=== PATIENT | male | born 1965 | race Hispanic/Latino ===

== ENCOUNTER 2017-05-13 15:01 | Emergency (ER) | payer BC ==
[2017-05-13 15:07] VITALS: BP 158/93; PULSE 90; RESP 16; TEMP 98.4; O2SAT 98
--- NOTE | 2017-05-13 15:48 | ED PDOC ---
HPI: Abdomen Chief Complaint (Provider): Abdominal bloating History Per: Patient History/Exam Limitations: no limitations Onset/Duration Of Symptoms: Hrs Outside of [place] travel?: No Current Symptoms Are (Timing): Still Present Location Of Pain/Discomfort: RLQ Quality Of Discomfort: Gas Associated Symptoms: Nausea, Loss Of Appetite. denies: Fever, Chills, Vomiting , Diarrhea, Back Pain, Chest Pain, Constipation, Urinary Symptoms Exacerbating Factors: None Alleviating Factors: None Last Bowel Movement: Today <Kvng Patino - Last Filed: 05/13/17 19:19> <Corrina Dawn - Last Filed: 05/13/17 23:53> Time Seen by Provider: 05/13/17 15:13 Chief Complaint (Nursing): Abdominal Pain Additional Complaint(s): CC: abdominal bloating HPI: 52 y/o man w/ PMH of insulin dependent DM type 2 and HTN presents to the ED w/ abdominal bloating. The patient reports that this started yesterday morning while doing chores. The patient reports RLQ discomfort but not pain, nausea but no episodes of vomiting, light-headedness and decreased appetite. The patient last ate food last night, had salad. The patient reports he had a bowel movement today prior to arrival to ED, which was his normal bowel movement. The patient denies headaches, chest pain, SOB, diarrhea, constipation , dysuria, fevers, and recent travel. PMD: Dr. Mazariegos PMH: DM type 2 meds: insulin humulog AC lunch, levemir AM and PM PSH: denies previous abdominal surgeries SOC: denies smoking, alcohol, and drugs ROS: negative for 12 points assessed unless otherwise reported in HPI (Kvng Patino) Supervising Attending Note <Kvng Patino - Last Filed: 05/13/17 19:19> - Supervising Attending Note The Documented history was done by the: Physician Field Technical Assistant, Attending Physician The documented physical exam was done by the: Physician Field Technical Assistant, Attending Physician - Attestation: I have personally seen and examined this patient.: Yes I have fully participated in the care of the patient.: Yes I have reviewed all pertinent clinical information: Yes <Corrina Dawn - Last Filed: 05/13/17 23:53> - Notes: Notes:: [facility]. Since pt is comfortable, he can f/u in office on Thursday. Advised this to patient who reports that he will go to see Dr Mazariegos first for referral. Reasons to RTER reviewed with pt and all concerns addressed. (Corrina Dawn) Past Medical History - Medical History PMH: Asthma, Diabetes, HTN - Family History Family History: States: Unknown Family Hx <Kvng Patino - Last Filed: 05/13/17 19:19> <Corrina Dawn - Last Filed: 05/13/17 23:53> Vital Signs: Last Vital Signs Temp 98.4 F 05/13/17 15:04 Pulse 90 05/13/17 15:04 Resp 16 05/13/17 15:04 BP 158/93 H 05/13/17 15:04 Pulse Ox 98 05/13/17 19:19 - Home Medications Home Medications: Ambulatory Orders Medication Instructions Recorded Oxycodone HCl/Acetaminophen 1 tab PO QID PRN #12 tab 07/22/15 [Percocet 325 mg-5 mg] Tamsulosin HCl [Flomax] 0.4 mg PO DAILY #30 cap 07/22/15 Meclizine [Meclizine*] 25 mg PO Q6 PRN #20 tab 11/06/16 Ibuprofen [Motrin Tab] 600 mg PO Q8 PRN #60 tab 05/13/17 Nitrofurantoin Macrocrystals 1 cap PO BID #14 cap 05/13/17 [Macrobid] - Allergies Allergies/Adverse Reactions: Allergies Allergy/AdvReac Type Severity Reaction Status Date / Time No Known Allergies Allergy Verified 05/13/17 15:04 Review of Systems ROS Statement: Except As Marked, All Systems Reviewed And Found Negative Constitutional: Negative for: Fever, Chills, Sweats, Weakness, Weight loss Eyes: Negative for: Vision Change Cardiovascular: Positive for: Light Headedness. Negative for: Chest Pain, Palpitations, Orthopnea, Paroxysmal Noc. Dyspnea, Edema Respiratory: Negative for: Cough, Shortness of Breath, Hemoptysis, SOB with Exertion, Pleuritic Pain, Wheezing Gastrointestinal: Positive for: Nausea. Negative for: Vomiting, Abdominal Pain , Diarrhea, Constipation, Melena, Hematochezia, Hematemesis Genitourinary Male: Negative for: Dysuria Musculoskeletal: Negative for: Neck Pain, Shoulder Pain, Back Pain Skin: Negative for: Rash Neurological: Negative for: Weakness, Change in Speech, Altered Mental Status <Kvng Patino - Last Filed: 05/13/17 19:19> Physical Exam - Reviewed Nursing Documentation Reviewed: Yes Vital Signs Reviewed: Yes (elevated BP) - Physical Exam Appears: Positive for: No Acute Distress Head Exam: Positive for: ATRAUMATIC, NORMOCEPHALIC Skin: Positive for: Normal Color, Warm, Dry Eye Exam: Positive for: Normal appearance, EOMI, PERRL Neck: Positive for: Painless ROM, Supple Cardiovascular/Chest: Positive for: Regular Rate, Rhythm, Chest Non Tender. Negative for: Edema, Bradycardia, Tachycardia Respiratory: Positive for: Normal Breath Sounds. Negative for: Decreased Breath Sounds, Accessory Muscle Use, Crackles, Rales, Rhonchi, Stridor, Wheezing , Respiratory Distress Pulses-Carotid (L): 2+ Pulses-Carotid (R): 2+ Pulses-Post. Tibialis (L): 2+ Pulses-Post. Tibialis (R): 2+ Pulses-Radial (L): 2+ Pulses-Radial (R): 2+ Gastrointestinal/Abdominal: Positive for: Bowel Sounds, Distended. Negative for : Tenderness, Mass, Guarding, Rebound, Asicites Neurologic/Psych: Positive for: Alert, Oriented <Kvng Patino - Last Filed: 05/13/17 19:19> - Laboratory Results Result Diagrams: 05/13/17 15:50 05/13/17 15:50 - ECG O2 Sat by Pulse Oximetry: 98 <Kvng Patino - Last Filed: 05/13/17 19:19> - Laboratory Results Result Diagrams: 05/13/17 15:50 05/13/17 15:50 <Corrina Dawn - Last Filed: 05/13/17 23:53> Medical Decision Making <Kvng Patino - Last Filed: 05/13/17 19:19> <Corrina Dawn - Last Filed: 05/13/17 23:53> Medical Decision Makin52 y/o man w/ PMH of insulin dependent DM type 2 and HTN presents to the ED w/ abdominal bloating CBC w/ diff: elevated WBC 15.0, no anemia type and screen: A+, antibody negative CMP: elevated glucose, otherwise WNL lipase: WNL 48 PT: 11.5 INR: 1.0 aPTT: 28.8 urine dip: mild proteinuria 100mg/dL, mild ketonuria 40 mg/dL, trace blood, neg for glucose, nitrates, and leukocyte esterase fingerstick: 203 EKG: NSR, no ST segment elevation/depression, no prolonged QT interval, no prolonged segments XR abdomen: no bowel obstruction CT abdomen and pelvis w/ IV contrast only: 11mm obstructing calculus in proximal ureter Re-evaluated 19:00 patient feels better Dispo: discharge home, counseled to follow up w/ PMD and urologist (Kvng Patino) Disposition - Patient ED Disposition Is Patient to be Admitted: No Discussed With Dr.: Corrina Dawn Counseled Patient/Family Regarding: Studies Performed, Diagnosis, Need For Followup - Disposition Disposition: Routine/Home Disposition Time: 19:07 - POA Present On Arrival: None <Kvng Patino - Last Filed: 05/13/17 19:19> <Corrina Dawn - Last Filed: 05/13/17 23:53> - Clinical Impression Clinical Impression: Renal calculus, right - Disposition Referrals: Shantanu [facility] MD [Medical Doctor] - 05/15/17 (YOU HAVE A VERY LARGE STONE. FOLLOW UP WITH DR BAHENA ON THURSDAY AT [facility] [address] [place] [address].) Condition: IMPROVED Additional Instructions: RETURN TO ER FOR WORSENING SYMPTOMS Prescriptions: Ibuprofen [Motrin Tab] 600 mg PO Q8 PRN #60 tab PRN Reason: Pain, Moderate (4-7) Nitrofurantoin Macrocrystals [Macrobid] 1 cap PO BID #14 cap Instructions: Kidney Stones (ED), Kidney Stones (DC), Renal Colic (ED) Print Language: FINNISH
[2017-05-13 16:14] LABS: BASO # 0.1 K/uL (0.0-0.2); BASO % 0.7 % (0.0-2.0); EOS # 0.1 K/uL (0.0-0.7); EOS % 0.9 % (0.0-4.0); HEMOGLOBIN 15.5 g/dL (12.0-18.0); LYMPH # 1.5 K/uL (1.0-4.3); LYMPH % 10.2 % (20.0-40.0); MEAN CELL VOLUME 87.8 fl (80.0-94.0); MEAN CORPUSCULAR HEMOGLOBIN 28.9 pg (27.0-31.0); MEAN CORPUSCULAR HGB CONC 32.9 g/dL (33.0-37.0); MEAN PLATELET VOLUME 8.9 fl (7.2-11.7); MONO # 1.2 K/uL (0.0-0.8); MONO % 8.1 % (0.0-10.0); NEUT % 80.1 % (50.0-75.0); RBC 5.36 Mil/uL (4.40-5.90)
[2017-05-13 16:31] LABS: ALB/GLOB RATIO 1.4 (1.0-2.1); ALBUMIN 4.5 g/dL (3.5-5.0); ALT/SGPT 36 U/L (21-72); AST/SGOT 26 U/L (17-59); BLOOD UREA NITROGEN 13 mg/dl (9-20); CALCIUM 9.1 mg/dL (8.4-10.2); GFR AFRICAN-AMERICAN > 60; GFR NON-AFRICAN AMERICAN > 60; LIPASE 48 U/L (23-300)
[2017-05-13 16:35] LABS: PARTIAL THROMBOPLASTIN TIME 28.8 Seconds (25.6-37.1); PROTHROMBIN TIME 11.5 Seconds (9.8-13.1)
[2017-05-13] MEDS ORDERED: Iohexol 300 100 ML IJ ONE (17:00)
[2017-05-13] MEDS ORDERED: Sodium Chloride 0.9% 0 ML IV ONE (17:00)
--- NOTE | 2017-05-13 17:20 | RAD ---
PROCEDURE: Radiographs of the chest and abdomen (obstructive series) HISTORY: abd pain r/o sbo COMPARISON: No prior. TECHNIQUE: AP radiograph of the chest, with upright and supine radiographs of the abdomen. FINDINGS: CHEST: Lungs: Linear scar/atelectasis at right base. Cardiovascular: Normal size heart. No pulmonary vascular congestion. Pleura: No pleural fluid. No pneumothorax. Other findings: None. ABDOMEN AND PELVIS: Bowel: Unremarkable bowel gas pattern. No evidence of mechanical obstruction. Free air: None. Bones: Unremarkable. Other findings: None. IMPRESSION: No acute infiltrate. Linear scar/ atelectasis at right base. No evidence of bowel obstruction.
--- NOTE | 2017-05-13 18:26 | CT ---
PROCEDURE: CT Abdomen and Pelvis without intravenous contrast HISTORY: abd distension r/o sbo COMPARISON: 07/22/2015 TECHNIQUE: Without contrast.. Contrast Dose: 0 Radiation dose: Total exam DLP = 1059.68 mGy-cm. This CT exam was performed using one or more of the following dose reduction techniques: Automated exposure control, adjustment of the mA and/or kV according to patient size, and/or use of iterative reconstruction technique. FINDINGS: LOWER THORAX: Linear scar/ atelectasis in the right lower lobe. No dewayne infiltrate. LIVER: Unremarkable. No gross lesion or ductal dilatation. GALLBLADDER AND BILE DUCTS: No calcified gallstones. 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 No mural thickening or pericholecystic fluid. PANCREAS: Unremarkable. No gross lesion or ductal dilatation. SPLEEN: Unremarkable. ADRENALS: Unremarkable. No mass. KIDNEYS AND URETERS: Right hydronephrosis and proximal hydroureter. Obstructing 11 mm calculus proximal right ureter. Multiple small nonobstructing calculi within the right lower pole collecting system. 2-3 mm nonobstructing left lower pole renal calculus. No left hydronephrosis. No renal mass. VASCULATURE: Unremarkable. No aortic aneurysm. BOWEL: No evidence of bowel obstruction. No abnormal bowel loops are identified. APPENDIX: Not identified. No secondary findings to suggest acute appendicitis. PERITONEUM: Unremarkable. No free fluid. No free air. LYMPH NODES: Unremarkable. No enlarged lymph nodes. BLADDER: Unremarkable. REPRODUCTIVE: Normal prostate BONES: No acute fracture. Very mild dextroscoliosis of the lumbar spine. OTHER FINDINGS: None. IMPRESSION: Obstructing 11 mm proximal right ureteral calculus. Multiple small nonobstructing right renal calculi. Small nonobstructing left renal calculus. No evidence of bowel obstruction. Additional minor findings as above.
[2017-05-13 20:40] LABS: SQUAMOUS EPITHIAL 4 /hpf (0-5); URINE BILIRUBIN NEGATIVE (NEGATIVE); URINE BLOOD NEGATIVE (NEGATIVE); URINE CLARITY CLEAR (Clear); URINE COLOR YELLOW (YELLOW); URINE GLUCOSE (UA) 50 mg/dL (Normal); URINE LEUKOCYTE ESTERASE NEG Leu/uL (Negative); URINE NITRATE NEGATIVE (NEGATIVE); URINE PROTEIN 100 mg/dL (NEGATIVE); URINE UROBILINOGEN 0.2-1.0 mg/dL (0.2-1.0)
--- NOTE | 2017-05-14 08:11 | CARD ---
APPROVED REPORT EKG Measurement Heart [id number] <Conclusion> Normal sinus rhythm Normal ECG
== END 2017-05-13 19:42 | disposition home or self-care (01) ==
LOC: H.ER 15:01
DX: N20.2 Calculus of kidney with calculus of ureter (principal); E11.9 Type 2 diabetes mellitus without complications; Z79.4 Long term (current) use of insulin; I10 Essential (primary) hypertension

== ENCOUNTER 2017-12-02 12:31 | Inpatient (IN) | payer BC ==
[2017-12-02] MEDS ORDERED: Albuterol-Ipratrop 3 mg / 0.5 (3 ml) UD INH STA (12:59)
[2017-12-02] MEDS ORDERED: Albuterol-Ipratrop 3 mg / 0.5 (3 ml) UD ONE ×2 (13:27→16:16)
[2017-12-02 14:02] LABS: BASO # 0.1 K/uL (0.0-0.2); BASO % 0.5 % (0.0-2.0); EOS # 0.4 K/uL (0.0-0.7); EOS % 3.8 % (0.0-4.0); LYMPH # 0.9 K/uL (1.0-4.3); LYMPH % 8.4 % (20.0-40.0); MEAN CELL VOLUME 86.4 fl (80.0-94.0); MEAN CORPUSCULAR HEMOGLOBIN 28.7 pg (27.0-31.0); MEAN CORPUSCULAR HGB CONC 33.3 g/dL (33.0-37.0); MEAN PLATELET VOLUME 8.8 fl (7.2-11.7); MONO # 1.1 K/uL (0.0-0.8); MONO % 9.9 % (0.0-10.0); NEUT # 8.3 K/uL (1.8-7.0); NEUT % 77.4 % (50.0-75.0); NRBC % 0.1 % (0.0-0.0); PLATELET COUNT 185 K/uL (130-400); RBC 5.23 Mil/uL (4.40-5.90); RED CELL DISTRIBUTION WIDTH 14.3 % (11.5-14.5); WHITE BLOOD COUNT 10.7 K/uL (4.8-10.8)
--- NOTE | 2017-12-02 14:09 | ED PDOC ---
HPI: SOB/CHF/COPD Time Seen by Provider: 12/02/17 12:50 Chief Complaint (Nursing): Shortness Of Breath Chief Complaint (Provider): Dyspnea, Cough, Sore Throat History Per: Patient History/Exam Limitations: no limitations Onset/Duration Of Symptoms: Days (x 3-4) Current Symptoms Are (Timing): Still Present Additional Complaint(s): Judd is a 52 y/o male with a history of asthma who presents to the ED complaining of worsening dyspnea, cough, and sore throat ongoing for 3-4 days. Patient went to his PMD last week and started antibiotics, but now cannot ambulate without significant shortness of breath. Patient is on chronic steroids for asthma and uses an inhaler. He denies hemoptysis, leg swelling, pain, or syncope. 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 PMD: Balbir Mazariegos Past Medical History Reviewed: Historical Data, Nursing Documentation, Vital Signs Vital Signs: Last Vital Signs Temp 98.0 F 12/05/17 05:12 Pulse 81 12/05/17 05:12 Resp 18 12/05/17 05:12 BP 127/82 12/05/17 05:12 Pulse Ox 95 12/05/17 05:12 - Medical History PMH: Asthma, Diabetes, HTN - Surgical History Surgical History: No Surg Hx - Family History Family History: States: Unknown Family Hx - Social History Current smoker - smoking cessation education provided: No - Home Medications Home Medications: Ambulatory Orders Medication Instructions Recorded Albuterol Sulfate [Proair Hfa] 2 puff IH Q8H PRN 12/02/17 Amoxicillin [Amoxil 250 mg Cap] 250 mg PO Q8H 12/02/17 Insulin Detemir [Levemir] 50 unit SC BRKDIN 12/02/17 Insulin Lispro [humALOG] 50 unit SC .LUNCH 12/02/17 Promethazine [Phenergan Syrup] 5 ml PO Q6H PRN 12/02/17 - Allergies Allergies/Adverse Reactions: Allergies Allergy/AdvReac Type Severity Reaction Status Date / Time No Known Allergies Allergy Verified 05/13/17 15:04 Review of Systems ROS Statement: Except As Marked, All Systems Reviewed And Found Negative Constitutional: Positive for: Fever, Malaise ENT: Positive for: Throat Pain Cardiovascular: Negative for: Edema Respiratory: Positive for: Shortness of Breath. Negative for: Hemoptysis Neurological: Negative for: Other (syncope) Physical Exam - Reviewed Nursing Documentation Reviewed: Yes Vital Signs Reviewed: Yes - Physical Exam Appears: Positive for: Non-toxic. Negative for: Well (morbidly obese) Cardiovascular/Chest: Positive for: Regular Rate, Rhythm, Edema (trace b/l lower extremity) Respiratory: Positive for: Decreased Breath Sounds (b/l), Respiratory Distress ( mild) Gastrointestinal/Abdominal: Positive for: Normal Exam. Negative for: Tenderness Neurologic/Psych: Positive for: Alert, Oriented - Laboratory Results Result Diagrams: 12/03/17 05:10 12/03/17 05:10 - ECG O2 Sat by Pulse Oximetry: 91 (RA) Pulse Ox Interpretation: Abnormal Interpretation Of Abnormal: hypoxia Medical Decision Making Medical Decision Making: Time: 12:56 Initial Impression: Pt will be worked up for respiratory failure/fever; rule out sepsis, flu, pneumonia, PE Initial Plan: --VBG --EKG --BNP --CMP --Troponin I --CBC --D Dimer --PTT --Prothrombin Time --Duoneb --Solu-Medrol --Tylenol --Blood Culture --Flu Swab --Urinalysis Time: 14:33 --Positive for flu A. Tamiflu ordered --Chest XR Time: 15:59 CHEST XR FINDINGS: LUNGS: Cephalization of pulmonary vascularity/pulmonary venous congestion. Similar findings identified previously. PLEURA: No significant pleural effusion identified. No pneumothorax apparent. CARDIOVASCULAR: Stable cardiomegaly and pulmonary vascular congestion. OSSEOUS STRUCTURES: No significant abnormalities. VISUALIZED UPPER ABDOMEN: Normal. OTHER FINDINGS: None. IMPRESSION: No active pulmonary disease. No significant interval change compared to the prior examination(s). Patient w evidence of respiratory failure, will admit for influenza pneumonia/ pneumonitis Scribe Attestation: Documented by All Larry, acting as a scribe for Dr. Bolivar Larios III, MD. Provider Scribe Attestation: All medical record entries made by the Scribe were at my direction and personally dictated by me. I have reviewed the chart and agree that the record accurately reflects my personal performance of the history, physical exam, medical decision making, and the department course for this patient. I have also personally directed, reviewed, and agree with the discharge instructions and disposition. Disposition - Clinical Impression Clinical Impression: Influenza, pneumonia, Asthma exacerbation, Respiratory failure - Patient ED Disposition Is Patient to be Admitted: Yes Counseled Patient/Family Regarding: Studies Performed, Diagnosis - Disposition Disposition: Transfer of Care Disposition Time: 14:55 Condition: FAIR - Pt Status Changed To: Hospital Disposition Of: Inpatient - Admit Certification Admit to Inpatient:: After my assessment, the patient will require hospitalization for at least two midnights. This is because of the severity of symptoms shown, intensity of services needed, and/or the medical risk in this patient being treated as an outpatient. - POA Present On Arrival: None
[2017-12-02 14:13] LABS: ALB/GLOB RATIO 1.2 (1.0-2.1); ALBUMIN 4.3 g/dL (3.5-5.0); ALT/SGPT 30 U/L (21-72); AST/SGOT 22 U/L (17-59); BLOOD UREA NITROGEN 7 mg/dl (9-20); CALCIUM 9.5 mg/dL (8.4-10.2); GFR AFRICAN-AMERICAN > 60; GFR NON-AFRICAN AMERICAN > 60
[2017-12-02 14:21] LABS: INR 1.1 (0.9-1.2); PARTIAL THROMBOPLASTIN TIME 31.8 Seconds (25.6-37.1); PROTHROMBIN TIME 12.5 Seconds (9.8-13.1)
[2017-12-02 14:27] LABS: VENOUS BLOOD GAS PCO2 43 mmHg (40-60); VENOUS BLOOD GAS PO2 34 mm/Hg (30-55); VENOUS BLOOD PH 7.46 (7.32-7.43)
[2017-12-02 14:37] LABS: B-TYPE NATRIURETIC PEPTIDE 153 pg/ml (0-900)
[2017-12-02] MEDS ORDERED: levoFLOXacin 750 mg in D5W 150 ML BAG IVPB STA (15:18)
[2017-12-02 15:21] LABS: EOSINOPHIL 6 % (0-7); LYMPHOCYTE 5 % (20-50); MONOCYTE 12 % (0-10); NEUTROPHIL 73 % (42-75); PLATELET ESTIMATE NORMAL (NORMAL); REACTIVE LYMPHOCYTES 4 % (0-0); TOTAL CELLS COUNTED 100
--- NOTE | 2017-12-02 15:21 | CP.PCM.HP ---
History of Present Illness - History of Present Illness History of Present Illness: Chief Complaint : SOB HPI: 52y gent , obese with Hx of Asthma on daily Methylprednisolone, DM type II, came in bec of SOB. Symptoms started 2 wks ago when pt started have some respiratory symptoms described as nasal congestion, wheezing, sl cough. He went to see his PMD , Dr Mazariegos and he was prescribed Amoxicillin for URI. He felt fine for 3 days then started with the same symptoms. He started using his Pro air more and doubled up on his Medrol dose. 2 days ago he started feeling short of breath especially on exertion and started having productive cough. Today his SOB worsened and now accompanied by fever. He denies CP, no palpitation, no abd pain, no N/V. Present on Admission - Present on Admission Any Indicators Present on Admission: No Review of Systems - Review of Systems All systems: reviewed and no additional remarkable complaints except - Constitutional Constitutional: Chills, Fever, Lethargy, Malaise, Weakness - EENT Eyes: absent: Change in Vision Ears: absent: Decreased Hearing, Ear Discharge Nose/Mouth/Throat: Nasal Congestion, Sore Throat - Cardiovascular Cardiovascular: Dyspnea on Exertion. absent: Chest Pain, Chest Pain at Rest, Palpitations - Respiratory Respiratory: Cough, Dyspnea, Dyspnea on Exertion, Wheezing - Gastrointestinal Gastrointestinal: absent: Abdominal Pain, Nausea, Vomiting - Genitourinary Genitourinary: absent: Difficulty Urinating, Dysuria, Hematuria - Musculoskeletal Musculoskeletal: absent: Abnormal Gait - Integumentary Integumentary: absent: Rash - Neurological Neurological: absent: Focal Weakness, Headaches - Psychiatric Psychiatric: absent: Anxiety - Endocrine Endocrine: absent: Polydipsia, Polyphagia, Polyuria - Hematologic/Lymphatic Hematologic: absent: Easy Bleeding, Easy Bruising Past Patient History - Infectious Disease Hx of Infectious Diseases: None - Tetanus Immunizations Tetanus Immunization: Unknown - Past Medical History & Family History Past Medical History?: Yes Past Family History: Reviewed and not pertinent - Past Social History Smoking Status: Never Smoked Chewing Tobacco Use: No Cigar Use: No Alcohol: None Drugs: Denies Home Situation {Lives}: With Family Domestic Violence: Negative - CARDIAC Hx Hypertension: Yes - PULMONARY Hx Asthma: Yes - ENDOCRINE/METABOLIC Hx Diabetes Mellitus Type 2: Yes - PSYCHIATRIC Hx Substance Use: No - SURGICAL HISTORY Hx Surgeries: No Meds Allergies/Adverse Reactions: Allergies Allergy/AdvReac Type Severity Reaction Status Date / Time No Known Allergies Allergy Verified 05/13/17 15:04 Physical Exam - Constitutional Appears: Non-toxic, No Acute Distress - Head Exam Head Exam: ATRAUMATIC, NORMAL INSPECTION, NORMOCEPHALIC - Eye Exam Eye Exam: EOMI, Normal appearance, PERRL Pupil Exam: NORMAL ACCOMODATION - ENT Exam ENT Exam: Mucous Membranes Moist, Normal External Ear Exam - Neck Exam Neck exam: Positive for: Full Rom. Negative for: Meningismus - Respiratory Exam Respiratory Exam: Decreased Breath Sounds, Rhonchi, NORMAL BREATHING PATTERN. absent: Respiratory Distress - Cardiovascular Exam Cardiovascular Exam: Tachycardia, REGULAR RHYTHM, +S1, +S2 - GI/Abdominal Exam GI & Abdominal Exam: Normal Bowel Sounds, Soft. absent: Tenderness - Extremities Exam Extremities exam: Positive for: full ROM, normal capillary refill, pedal pulses present. Negative for: calf tenderness, pedal edema - Back Exam Back exam: FULL ROM. absent: CVA tenderness (L), CVA tenderness (R), vertebral tenderness - Neurological Exam Neurological exam: Alert, CN II-XII Intact, Normal Gait, Oriented x3, Reflexes Normal - Psychiatric Exam Psychiatric exam: Normal Affect, Normal Mood - Skin Skin Exam: Dry, Normal Color, Warm Results - Vital Signs Recent Vital Signs: Last Vital Signs Temp 101.1 F H 12/02/17 13:58 Pulse 125 H 12/02/17 12:37 Resp 20 12/02/17 12:37 BP 191/99 H 12/02/17 12:37 Pulse Ox 91 L 12/02/17 14:48 - Labs Result Diagrams: 12/02/17 13:45 12/02/17 13:45 Labs: Laboratory Results - last 24 hr 12/02/17 12/02/17 12/02/17 13:45 13:45 13:45 WBC 10.7 RBC 5.23 Hgb 15.0 Hct 45.2 MCV 86.4 MCH 28.7 MCHC 33.3 RDW 14.3 Plt Count 185 MPV 8.8 Neut % (Auto) 77.4 H Lymph % (Auto) 8.4 L Wayne % (Auto) 9.9 Eos % (Auto) 3.8 Baso % (Auto) 0.5 Neut # (Auto) 8.3 H Lymph # (Auto) 0.9 L Wayne # (Auto) 1.1 H Eos # (Auto) 0.4 Baso # (Auto) 0.1 PT 12.5 INR 1.1 APTT 31.8 D-Dimer, Quantitative 197 pO2 VBG pH VBG pCO2 VBG HCO3 VBG Total CO2 VBG O2 Sat (Calc) VBG Base Excess VBG Potassium Glucose Lactate FiO2 Sodium 137 Potassium 3.8 Chloride 95 L Carbon Dioxide 29 Anion Gap 17 BUN 7 L Creatinine 0.5 L Est GFR ( Amer) > 60 Est GFR (Non-Af Amer) > 60 Random Glucose 229 H Calcium 9.5 Total Bilirubin 0.7 AST 22 ALT 30 Alkaline Phosphatase 67 Troponin I 0.0180 NT-Pro-B Natriuret Pep 153 Total Protein 7.8 Albumin 4.3 Globulin 3.5 Albumin/Globulin Ratio 1.2 Venous Blood Potassium Influenza Typ A,B (EIA) 12/02/17 12/02/17 14:11 14:20 WBC RBC Hgb Hct MCV MCH MCHC RDW Plt Count MPV Neut % (Auto) Lymph % (Auto) Wayne % (Auto) Eos % (Auto) Baso % (Auto) Neut # (Auto) Lymph # (Auto) Wayne # (Auto) Eos # (Auto) Baso # (Auto) PT INR APTT D-Dimer, Quantitative pO2 34 VBG pH 7.46 H VBG pCO2 43 VBG HCO3 28.9 VBG Total CO2 31.9 H VBG O2 Sat (Calc) 74.7 H VBG Base Excess 6.0 H VBG Potassium 3.9 Glucose 239 H Lactate 2.1 FiO2 21.0 Sodium 133.0 Potassium Chloride 97.0 L Carbon Dioxide Anion Gap BUN Creatinine Est GFR ( Amer) Est GFR (Non-Af Amer) Random Glucose Calcium Total Bilirubin AST ALT Alkaline Phosphatase Troponin I NT-Pro-B Natriuret Pep Total Protein Albumin Globulin Albumin/Globulin Ratio Venous Blood Potassium 3.9 Influenza Typ A,B (EIA) Pos for influenza a H - EKG Data EKG Interpreted by: Myself EKG shows normal: Sinus rhythm - EKG Data When Compared to Previous EKG: No Significant Change Assessment & Plan (1) CAP (community acquired pneumonia) Status: Acute (2) Mild asthma with acute exacerbation Status: Acute (3) Influenza A Status: Acute (4) HTN (hypertension) Status: Acute (5) DM type 2 (diabetes mellitus, type 2) Status: Acute (6) DVT prophylaxis Status: Acute - Assessment and Plan (Free Text) Assessment: 52 y/o gent with hx of Asthma, DM type II came in bec of SOB , cough , wheezing and fever. Found to have RRL PNA, and Influenza A +. (1) CAP (community acquired pneumonia) Status: Acute Blood c/s Sputum c/s start IV Ceftriaxone and Azithro legionella, MycoplasmA (2) Mild asthma with acute exacerbation Status: Acute START iv [id number] 40 MG DAILY DUONEB (3) Influenza A Status: Acute start Tamiflu (4) HTN (hypertension) Status: Acute start Diovan (5) DM type 2 (diabetes mellitus, type 2) Status: Acute accucheck cont Levemir and Humalog (6) DVT prophylaxis Status: Acute Lovenox Decision To Admit - Pt Status Changed To: Hospital Disposition Of: Inpatient - Admit Certification Admit to Inpatient:: After my assessment, the patient will require hospitalization for at least two midnights. This is because of the severity of symptoms shown, intensity of services needed, and/or the medical risk in this patient being treated as an outpatient. - . Bed Request Type: Telemetry Admitting Physician: Carol Waddell
[2017-12-02] MEDS ORDERED: guaiFENesin-Codeine 100-10mg/5ml Syrup (5 ml) UD PO PRN (15:52)
--- NOTE | 2017-12-02 16:01 | RAD ---
HISTORY: cough COMPARISON: 06/11/2015 TECHNIQUE: Chest PA and lateral FINDINGS: LUNGS: Cephalization of pulmonary vascularity/pulmonary venous congestion. Similar findings identified previously. PLEURA: No significant pleural effusion identified. No pneumothorax apparent. CARDIOVASCULAR: Stable cardiomegaly and pulmonary vascular congestion. OSSEOUS STRUCTURES: No significant abnormalities. VISUALIZED UPPER ABDOMEN: Normal. OTHER FINDINGS: None. IMPRESSION: No active pulmonary disease. No significant interval change compared to the prior examination(s).
[2017-12-02] MEDS ORDERED: levoFLOXacin 750 mg in D5W 750 MG/150 ML BAG IVPB ONE (16:16)
[2017-12-02] MEDS ORDERED: Azithromycin 500 MG IV IVPB ONE (16:19)
[2017-12-02] MEDS ORDERED: Sodium Chloride 3% for Inhalation 4 ML VIAL.NEB IH PRN (16:20)
[2017-12-02] MEDS: Albuterol-Ipratrop 3 mg / 0.5 (3 ml) UD INH SCH (16:46)
[2017-12-02] MEDS: Insulin Lispro (humaLOG) 100 Units/ml Inj SC SCH ×2 (17:25→23:30)
[2017-12-02 17:48] LABS: SQUAMOUS EPITHIAL 3 /hpf (0-5); URINE BACTERIA RARE (<OCC); URINE BILIRUBIN NEGATIVE (NEGATIVE); URINE BLOOD NEGATIVE (NEGATIVE); URINE CLARITY SLIGHTY-CLOUDY (Clear); URINE COLOR YELLOW (YELLOW); URINE GLUCOSE (UA) 50 mg/dL (Normal); URINE LEUKOCYTE ESTERASE TRACE Leu/uL (Negative); URINE NITRATE NEGATIVE (NEGATIVE); URINE PROTEIN 30 mg/dL (NEGATIVE); URINE UROBILINOGEN 0.2-1.0 mg/dL (0.2-1.0)
[2017-12-02] MEDS: Azithromycin 500 MG in Sodium Chloride 0.9% 250 ML IVPB SCH (19:33)
[2017-12-02] MEDS ORDERED: Insulin Detemir 100 Units/ml Inj SC SCH (22:00)
[2017-12-03 05:57] LABS: HEMOGLOBIN 14.5 g/dL (12.0-18.0); MEAN CORPUSCULAR HEMOGLOBIN 28.3 pg (27.0-31.0); MEAN CORPUSCULAR HGB CONC 32.5 g/dL (33.0-37.0); RBC 5.14 Mil/uL (4.40-5.90); RED CELL DISTRIBUTION WIDTH 14.7 % (11.5-14.5); WHITE BLOOD COUNT 9.6 K/uL (4.8-10.8)
[2017-12-03 06:30] LABS: BLOOD UREA NITROGEN 13 mg/dl (9-20); CALCIUM 9.5 mg/dL (8.4-10.2); GFR AFRICAN-AMERICAN > 60; GFR NON-AFRICAN AMERICAN > 60
[2017-12-03] MEDS: Albuterol-Ipratrop 3 mg / 0.5 (3 ml) UD INH SCH ×4 (07:42→20:32)
--- NOTE | 2017-12-03 08:22 | PQF GENQUE ---
This form is a permanent part of the medical record 12/03/17 Dr. Waddell, Please clarify if this is Mild Intermittent or Mild Persistent Asthma if known. Documentation of Mild Asthma with Acute exacerbation. Treated with nebulizers, solumedrol and IVAB. Clarification of your documentation is requested to better reflect the severity of illness and intensity of treatment of your patient. Indicators present [] Specify: [] [] Specify: [] [] Specify: [] [] Specify: [] Location in the medical record that reflects the above clinical findings: [] Treatment Provided: [] PHYSICIAN'S RESPONSE Mild persistent Asthma with exacerbation Based on your medical judgment of the clinical indicators outlined above please clarify the following: [] Practitioner response [] If unable to determine, please check the box, sign and date. Present On Admission (POA) Indicator: [] Present at the time of admission [] Not present at the time of admission [] Clinically Undetermined In responding to this query, please exercise your independent professional judgment. The fact that a question is asked does not imply that any particular answer is desired or expected. Thank you for your clarification on this documentation. If you have any questions please call:ext [phone] * Thank you, Anastacia Castanon RN [facility]
--- NOTE | 2017-12-03 08:27 | PQF GENQUE ---
This form is a permanent part of the medical record 12/03/17 Dr. Waddell. Would you please clarify if this is DM II with or without Hyperglycemia or other explanation . Patient is admitted for CAP, Asthma exacerbation and Influenza A. Was on prednisone and now being treated with Solumedrol. Accuchecks running [id number] with coverage. Clarification of your documentation is requested to better reflect the severity of illness and intensity of treatment of your patient. Indicators present [] Specify: [] [] Specify: [] [] Specify: [] [] Specify: [] Location in the medical record that reflects the above clinical findings: [] Treatment Provided: [] PHYSICIAN'S RESPONSE DM type II with Hyperglycemia Based on your medical judgment of the clinical indicators outlined above please clarify the following: [] Practitioner response [] If unable to determine, please check the box, sign and date. Present On Admission (POA) Indicator: [] Present at the time of admission [] Not present at the time of admission [] Clinically Undetermined In responding to this query, please exercise your independent professional judgment. The fact that a question is asked does not imply that any particular answer is desired or expected. Thank you for your clarification on this documentation. If you have any questions please call:ext [phone] * Thank you, Anastacia Castanon RN [facility]
[2017-12-03] MEDS ORDERED: methylPREDNISolone 40 MG in Sodium Chloride 0.9% 50 ML IVPB SCH (09:00)
[2017-12-03] MEDS ORDERED: Insulin Detemir 100 Units/ml Inj SC SCH (09:00)
[2017-12-03] MEDS ORDERED: MethylPREDNISolone 40 mg Vial IVP SCH (09:00)
[2017-12-03] MEDS: Enoxaparin 40 mg Syringe SC SCH (09:05)
--- NOTE | 2017-12-03 09:10 | CARD ---
APPROVED REPORT EKG Measurement Heart [id number] ND [id number] <Conclusion> Sinus tachycardia Otherwise normal ECG
[2017-12-03] MEDS: Azithromycin 500 MG in Sodium Chloride 0.9% 250 ML IVPB SCH (09:13)
[2017-12-03] MEDS: Insulin Lispro (humaLOG) 100 Units/ml Inj SC SCH ×4 (09:17→21:57)
[2017-12-03] MEDS: Metoprolol Succinate 25 mg XL Tab PO SCH (10:31)
--- NOTE | 2017-12-03 11:31 | CP.PCM.PN ---
Subjective - Date & Time of Evaluation Date of Evaluation: 12/03/17 Time of Evaluation: 10:45 - Subjective Subjective: Pt is now afebrile breathing better SOB better still with some cough , productive wheezing resolved denies CP no abd pain body aches better Objective - Vital Signs/Intake and Output Vital Signs (last 24 hours): Temp Pulse Resp BP Pulse Ox 98.2 F 92 H 18 144/88 93 L 12/03/17 08:01 12/03/17 10:31 12/03/17 08:01 12/03/17 10:31 12/03/17 08:01 - Medications Medications: Current Medications Acetaminophen (Tylenol 325mg Tab) 650 mg PO Q6 PRN PRN Reason: Fever >100.4 F Albuterol/Ipratropium (Duoneb 3 Mg/0.5 Mg (3 Ml) Ud) 3 ml INH RQID [facility] Last Admin: 12/03/17 07:42 Dose: 3 ml Enoxaparin Sodium (Lovenox) 40 mg SC DAILY [facility] PRN Reason: Protocol Last Admin: 12/03/17 09:05 Dose: 40 mg Guaifenesin/Codeine Phosphate (Robitussin W/Codeine) 10 ml PO Q4 PRN PRN Reason: Cough Azithromycin 500 mg/ Sodium (Chloride) 250 mls @ 250 mls/hr IVPB DAILY [facility] PRN Reason: Protocol Last Admin: 12/03/17 09:13 Dose: 250 mls/hr Ceftriaxone Sodium 1 gm/ (Sodium Chloride) 50 mls @ 50 mls/hr IVPB DAILY [facility] PRN Reason: Protocol Insulin Detemir (Levemir) 50 units SC HS [facility] Last Admin: 12/02/17 23:31 Dose: 50 units Insulin Detemir (Levemir) 50 units SC DAILY [facility] Last Admin: 12/03/17 09:08 Dose: 50 units Insulin Human Lispro (Humalog) 0 units SC ACHS [facility] PRN Reason: Protocol Last Admin: 12/03/17 09:17 Dose: 6 units Methylprednisolone (Solu-Medrol) 40 mg IVP DAILY [facility] Last Admin: 12/03/17 09:11 Dose: 40 mg Metoprolol Succinate (Toprol Xl) 25 mg PO DAILY [facility] Last Admin: 12/03/17 10:31 Dose: 25 mg Montelukast Sodium (Singulair) 10 mg PO DAILY [facility] Last Admin: 12/03/17 10:31 Dose: 10 mg Oseltamivir Phosphate (Tamiflu Cap) 75 mg PO BID [facility] PRN Reason: Protocol Last Admin: 12/03/17 09:11 Dose: 75 mg Tamsulosin HCl (Flomax) 0.4 mg PO DAILY [facility] Last Admin: 12/03/17 09:10 Dose: 0.4 mg Valsartan (Diovan) 80 mg PO DAILY [facility] Last Admin: 12/03/17 09:12 Dose: 80 mg - Labs Labs: 12/03/17 05:10 12/03/17 05:10 PT 12.5 Seconds (9.8-13.1) 12/02/17 13:45 INR 1.1 (0.9-1.2) 12/02/17 13:45 APTT 31.8 Seconds (25.6-37.1) 12/02/17 13:45 - Constitutional Appears: Non-toxic, No Acute Distress - Head Exam Head Exam: ATRAUMATIC, NORMAL INSPECTION, NORMOCEPHALIC - Eye Exam Eye Exam: EOMI, Normal appearance, PERRL Pupil Exam: NORMAL ACCOMODATION - ENT Exam ENT Exam: Mucous Membranes Moist, Normal External Ear Exam - Neck Exam Neck exam: Positive for: Full Rom. Negative for: Meningismus - Respiratory Exam Respiratory Exam: Decreased Breath Sounds, Rhonchi, mild wheeze NORMAL BREATHING PATTERN. absent: Respiratory Distress - Cardiovascular Exam Cardiovascular Exam: Tachycardia, REGULAR RHYTHM, +S1, +S2 - GI/Abdominal Exam GI & Abdominal Exam: Normal Bowel Sounds, Soft. absent: Tenderness - Extremities Exam Extremities exam: Positive for: full ROM, normal capillary refill, pedal pulses present. Negative for: calf tenderness, pedal edema - Back Exam Back exam: FULL ROM. absent: CVA tenderness (L), CVA tenderness (R), vertebral tenderness - Neurological Exam Neurological exam: Alert, CN II-XII Intact, Normal Gait, Oriented x3, Reflexes Normal - Psychiatric Exam Psychiatric exam: Normal Affect, Normal Mood - Skin Skin Exam: Dry, Normal Color, Warm Assessment and Plan (1) CAP (community acquired pneumonia) Status: Acute (2) Mild asthma with acute exacerbation Status: Acute (3) Influenza A Status: Acute (4) HTN (hypertension) Status: Acute (5) DM type 2 (diabetes mellitus, type 2) Status: Acute (6) DVT prophylaxis Status: Acute - Assessment and Plan (Free Text) Assessment: 52y gent , obese with Hx of Asthma , DM type II, came in bec of SOB. Symptoms started 2 wks ago when pt started have some respiratory symptoms described as nasal congestion, wheezing, sl cough. His symptoms worsened and he started to have fever. Influenza A + CXR : Neg infiltrates (1) Suspected early CAP (community acquired pneumonia) vs Tracheobronchitis Status: Acute Blood c/s Sputum c/s cont IV Ceftriaxone and Azithro legionella : neg , Mycoplasma : pending Pulm consult (2) Mild persistent asthma with acute exacerbation Status: Acute cont DUONEB cont IV Solumedrol decrease to 30 mg daily (3) Influenza A Status: Acute cont Tamiflu (4) HTN (hypertension) Status: Acute cont Diovan add low dose Toprol (5) DM type 2 (diabetes mellitus, type 2) with hyperglycemia Status: Acute accucheck increase Levemir 60 units q am and HS cont Humalog (6) DVT prophylaxis Status: Acute Lovenox
[2017-12-03] MEDS: Artificial Tears Opht Soln OU PRN (22:00)
[2017-12-03] MEDS: Insulin Detemir 100 Units/ml Inj SC SCH (22:02)
[2017-12-04] MEDS: Albuterol-Ipratrop 3 mg / 0.5 (3 ml) UD INH SCH ×4 (08:18→19:47)
[2017-12-04] MEDS: Azithromycin 500 MG in Sodium Chloride 0.9% 250 ML IVPB SCH (09:17)
[2017-12-04] MEDS: Metoprolol Succinate 25 mg XL Tab PO SCH (09:18)
[2017-12-04] MEDS: MethylPREDNISolone 40 mg Vial IVP SCH (09:19)
[2017-12-04] MEDS: Insulin Lispro (humaLOG) 100 Units/ml Inj SC SCH ×4 (09:20→22:45)
[2017-12-04] MEDS: Insulin Detemir 100 Units/ml Inj SC SCH ×2 (09:21→23:47)
[2017-12-04] MEDS: Enoxaparin 40 mg Syringe SC SCH (09:23)
--- NOTE | 2017-12-04 13:55 | CP.PCM.PN ---
Subjective - Date & Time of Evaluation Date of Evaluation: 12/04/17 Time of Evaluation: 12:00 - Subjective Subjective: Still with cough and wheezing SOB on exertion Sat 94% on Room Air no CP' no abd pain no Fever Objective - Vital Signs/Intake and Output Vital Signs (last 24 hours): Temp Pulse Resp BP Pulse Ox 98.5 F 95 H 18 130/79 94 L 12/04/17 12:05 12/04/17 12:05 12/04/17 12:05 12/04/17 12:12/04/17 12:05 - Medications Medications: Current Medications Acetaminophen (Tylenol 325mg Tab) 650 mg PO Q6 PRN PRN Reason: Fever >100.4 F Albuterol/Ipratropium (Duoneb 3 Mg/0.5 Mg (3 Ml) Ud) 3 ml INH RQID [facility] Last Admin: 12/04/17 11:20 Dose: 3 ml Artificial Tears (Artificial Tears) 2 drop OU Q4 PRN PRN Reason: Dry eyes Last Admin: 12/03/17 22:00 Dose: 2 drop Enoxaparin Sodium (Lovenox) 40 mg SC DAILY [facility] PRN Reason: Protocol Last Admin: 12/04/17 09:23 Dose: 40 mg Guaifenesin/Codeine Phosphate (Robitussin W/Codeine) 10 ml PO Q4 PRN PRN Reason: Cough Azithromycin 500 mg/ Sodium (Chloride) 250 mls @ 250 mls/hr IVPB DAILY [facility] PRN Reason: Protocol Last Admin: 12/04/17 09:17 Dose: 250 mls/hr Ceftriaxone Sodium 1 gm/ (Sodium Chloride) 50 mls @ 50 mls/hr IVPB DAILY [facility] PRN Reason: Protocol Last Admin: 12/04/17 09:17 Dose: 50 mls/hr Insulin Detemir (Levemir) 60 units SC HS [facility] Last Admin: 12/03/17 22:02 Dose: 60 units Insulin Detemir (Levemir) 60 units SC DAILY [facility] Last Admin: 12/04/17 09:21 Dose: 60 units Insulin Human Lispro (Humalog) 0 units SC ACHS [facility] PRN Reason: Protocol Last Admin: 12/04/17 09:20 Dose: Not Given Methylprednisolone (Solu-Medrol) 30 mg IVP DAILY [facility] Last Admin: 12/04/17 09:19 Dose: 30 mg Metoprolol Succinate (Toprol Xl) 25 mg PO DAILY [facility] Last Admin: 12/04/17 09:18 Dose: 25 mg Montelukast Sodium (Singulair) 10 mg PO DAILY [facility] Last Admin: 12/04/17 09:20 Dose: 10 mg Oseltamivir Phosphate (Tamiflu Cap) 75 mg PO BID [facility] PRN Reason: Protocol Last Admin: 12/04/17 09:19 Dose: 75 mg Tamsulosin HCl (Flomax) 0.4 mg PO DAILY [facility] Last Admin: 12/04/17 09:20 Dose: 0.4 mg Valsartan (Diovan) 80 mg PO DAILY [facility] Last Admin: 12/04/17 09:20 Dose: 80 mg - Labs Labs: 12/03/17 05:10 12/03/17 05:10 PT 12.5 Seconds (9.8-13.1) 12/02/17 13:45 INR 1.1 (0.9-1.2) 12/02/17 13:45 APTT 31.8 Seconds (25.6-37.1) 12/02/17 13:45 - Constitutional Appears: Non-toxic, No Acute Distress - Head Exam Head Exam: ATRAUMATIC, NORMAL INSPECTION, NORMOCEPHALIC - Eye Exam Eye Exam: EOMI, Normal appearance, PERRL Pupil Exam: NORMAL ACCOMODATION - ENT Exam ENT Exam: Mucous Membranes Moist, Normal External Ear Exam - Neck Exam Neck exam: Positive for: Full Rom. Negative for: Meningismus - Respiratory Exam Respiratory Exam: Decreased Breath Sounds, Rhonchi, + wheeze NORMAL BREATHING PATTERN. absent: Respiratory Distress - Cardiovascular Exam Cardiovascular Exam: Tachycardia, REGULAR RHYTHM, +S1, +S2 - GI/Abdominal Exam GI & Abdominal Exam: Normal Bowel Sounds, Soft. absent: Tenderness - Extremities Exam Extremities exam: Positive for: full ROM, normal capillary refill, pedal pulses present. Negative for: calf tenderness, pedal edema - Back Exam Back exam: FULL ROM. absent: CVA tenderness (L), CVA tenderness (R), vertebral tenderness - Neurological Exam Neurological exam: Alert, CN II-XII Intact, Normal Gait, Oriented x3, Reflexes Normal - Psychiatric Exam Psychiatric exam: Normal Affect, Normal Mood - Skin Skin Exam: Dry, Normal Color, Warm Assessment and Plan (1) CAP (community acquired pneumonia) Status: Acute (2) Mild asthma with acute exacerbation Status: Acute (3) Influenza A Status: Acute (4) HTN (hypertension) Status: Acute (5) DM type 2 (diabetes mellitus, type 2) Status: Acute (6) DVT prophylaxis Status: Acute - Assessment and Plan (Free Text) Assessment: 52y gent , obese with Hx of Asthma , DM type II, came in bec of SOB. Symptoms started 2 wks ago when pt started have some respiratory symptoms described as nasal congestion, wheezing, sl cough. His symptoms worsened and he started to have fever. Influenza A + CXR : Neg infiltrates Today 2/2 , pt is still short of breath and wheezing, saturation 94% on RA, goes down to 92% after 6 minutes ambulation in his room. (1) Suspected early CAP (community acquired pneumonia) vs Tracheobronchitis Status: Acute Blood c/s : neg Sputum c/s: Gram stain rare Gram + baccilli and Gram + cocci in chains cont IV Ceftriaxone and Azithro legionella : neg , Mycoplasma : pending Pulm consult: Dr Curry rpt CXR (2) Mild to moderate persistent asthma with acute exacerbation Status: Acute cont DUONEB cont IV Solumedrol Pt still wheezing and SOB will get ECHO to eval LV function and also to check for pul HTN Pt may need to have Sleep Study as outpt Pulm consult - Dr Curry (3) Influenza A Status: Acute cont Tamiflu (4) HTN (hypertension) Status: Acute cont Diovan add low dose Toprol (5) DM type 2 (diabetes mellitus, type 2) with hyperglycemia Status: Acute uncontrolled due to steroids accucheck increase Levemir 60 units q am and HS cont Humalog (6) DVT prophylaxis Status: Acute Lovenox
[2017-12-04] MEDS: Artificial Tears Opht Soln OU PRN (16:47)
--- NOTE | 2017-12-04 23:23 | CP.PCM.CON ---
History of Present Illness - History of Present Illness History of Present Illness: Patient seen and examined, chart reviewed, full consult to be dictated. Cont present course of treatment. Past Patient History - Infectious Disease Hx of Infectious Diseases: None - Tetanus Immunizations Tetanus Immunization: Unknown - Past Medical History & Family History Past Medical History?: Yes - Past Social History Smoking Status: Never Smoked - CARDIAC Hx Cardiac Disorders: Yes Hx Hypertension: Yes - PULMONARY Hx Respiratory Disorders: Yes Hx Asthma: Yes - NEUROLOGICAL Hx Neurological Disorder: No - HEENT Hx HEENT Problems: No - RENAL Hx Chronic Kidney Disease: No - ENDOCRINE/METABOLIC Hx Endocrine Disorders: Yes Hx Diabetes Mellitus Type 2: Yes - HEMATOLOGICAL/ONCOLOGICAL Hx Blood Disorders: No - INTEGUMENTARY Hx Dermatological Problems: No - MUSCULOSKELETAL/RHEUMATOLOGICAL Hx Musculoskeletal Disorders: No Hx Falls: No - GASTROINTESTINAL Hx Gastrointestinal Disorders: No - GENITOURINARY/GYNECOLOGICAL Hx Genitourinary Disorders: No - PSYCHIATRIC Hx Psychophysiologic Disorder: No Hx Substance Use: No - SURGICAL HISTORY Hx Surgeries: No - ANESTHESIA Hx Anesthesia: No Hx Anesthesia Reactions: No Hx Malignant Hyperthermia: No Has any member of the family had a problem w/ anesthesia?: No Meds Allergies/Adverse Reactions: Allergies Allergy/AdvReac Type Severity Reaction Status Date / Time No Known Allergies Allergy Verified 05/13/17 15:04 - Medications Medications: Current Medications Acetaminophen (Tylenol 325mg Tab) 650 mg PO Q6 PRN PRN Reason: Fever >100.4 F Albuterol/Ipratropium (Duoneb 3 Mg/0.5 Mg (3 Ml) Ud) 3 ml INH RQID [facility] Last Admin: 12/04/17 19:47 Dose: 3 ml Artificial Tears (Artificial Tears) 2 drop OU Q4 PRN PRN Reason: Dry eyes Last Admin: 12/04/17 16:47 Dose: 2 drop Enoxaparin Sodium (Lovenox) 40 mg SC DAILY [facility] PRN Reason: Protocol Last Admin: 12/04/17 09:23 Dose: 40 mg Guaifenesin/Codeine Phosphate (Robitussin W/Codeine) 10 ml PO Q4 PRN PRN Reason: Cough Azithromycin 500 mg/ Sodium (Chloride) 250 mls @ 250 mls/hr IVPB DAILY [facility] PRN Reason: Protocol Last Admin: 12/04/17 09:17 Dose: 250 mls/hr Ceftriaxone Sodium 1 gm/ (Sodium Chloride) 50 mls @ 50 mls/hr IVPB DAILY [facility] PRN Reason: Protocol Last Admin: 12/04/17 09:17 Dose: 50 mls/hr Insulin Detemir (Levemir) 60 units SC [facility] Last Admin: 12/03/17 22:02 Dose: 60 units Insulin Detemir (Levemir) 60 units SC DAILY [facility] Last Admin: 12/04/17 09:21 Dose: 60 units Insulin Human Lispro (Humalog) 0 units SC [facility] PRN Reason: Protocol Last Admin: 12/04/17 16:44 Dose: 10 units Methylprednisolone (Solu-Medrol) 30 mg IVP DAILY [facility] Last Admin: 12/04/17 09:19 Dose: 30 mg Metoprolol Succinate (Toprol Xl) 25 mg PO DAILY [facility] Last Admin: 12/04/17 09:18 Dose: 25 mg Montelukast Sodium (Singulair) 10 mg PO DAILY [facility] Last Admin: 12/04/17 09:20 Dose: 10 mg Oseltamivir Phosphate (Tamiflu Cap) 75 mg PO BID [facility] PRN Reason: Protocol Last Admin: 12/04/17 16:48 Dose: 75 mg Tamsulosin HCl (Flomax) 0.4 mg PO DAILY [facility] Last Admin: 12/04/17 09:20 Dose: 0.4 mg Valsartan (Diovan) 80 mg PO DAILY [facility] Last Admin: 12/04/17 09:20 Dose: 80 mg Results - Vital Signs Recent Vital Signs: Last Vital Signs Temp 98.3 F 12/04/17 19:29 Pulse 97 H 12/04/17 19:29 Resp 20 12/04/17 19:29 BP 135/78 12/04/17 19:29 Pulse Ox 93 L 12/04/17 19:29 - Labs Result Diagrams: 12/03/17 05:10 12/03/17 05:10 Labs: Laboratory Results - last 24 hr 12/02/17 12/04/17 12/04/17 18:04 05:47 07:05 POC Glucose (mg/dL) 58 L 125 H Mycoplasma pneumon IgG 1.69 H Mycoplasma pneumon IgM 47 12/04/17 12/04/17 12/04/17 11:06 16:02 21:26 POC Glucose (mg/dL) 223 H 372 H 265 H Mycoplasma pneumon IgG Mycoplasma pneumon IgM
[2017-12-05] MEDS: Albuterol-Ipratrop 3 mg / 0.5 (3 ml) UD INH SCH ×2 (07:58→11:23)
[2017-12-05 08:29] VITALS: RESP 20
[2017-12-05] MEDS: Enoxaparin 40 mg Syringe SC SCH (09:22)
--- NOTE | 2017-12-05 09:22 | CARD ---
APPROVED REPORT EXAM: Two-dimensional and M-mode echocardiogram with Doppler and color Doppler. Other Information Quality : AverageRhythm : NSR INDICATION Hypertension/HCVD 2D DIMENSIONS IVSd1.03 (0.7-1.1cm)LVDd5.07 (3.9-5.9cm) LVOT Diameter2.01 (1.8-2.4cm)PWd1.00 (0.7-1.1cm) IVSs1.18 (0.8-1.2cm)LVDs3.02 (2.5-4.0cm) FS (%) 40.5 %PWs1.44 (0.8-1.2cm) M-Mode DIMENSIONS Left Atrium (MM)4.32 (2.5-4.0cm)Aortic Root3.94 (2.2-3.7cm) Aortic Cusp Exc.2.20 (1.5-2.0cm) Mitral Valve MV E Wofxjakq41.9cm/sMV DECEL LAWK183pdID A Vxopuwos07.7cm/s MV HZR90vdK/A ratio1.5MVA (PHT)4.41cm2 TDI Lateral E' Peak V13.28cm/sMedial E' Peak V8.47cm/sE/Lateral E'6.5 E/Medial E'10.3 Pulmonary Valve PV Peak Dcrjovrh793.3cm/s LEFT VENTRICLE The left ventricle is normal size. There is normal left ventricular wall thickness. Left ventricle systolic function is normal. The Ejection Fraction is 60-65%. There is normal LV segmental wall motion. The left ventricular diastolic function is normal. RIGHT VENTRICLE The right ventricle is normal size. There is normal right ventricular wall thickness. The right ventricular systolic function is normal. ATRIA The left atrium size is normal. The right atrium size is normal. AORTIC VALVE Poorly seen. No aortic regurgitation is present. There is no aortic valvular stenosis. MITRAL VALVE The mitral valve is normal in structure. There is no evidence of mitral valve prolapse. There is no mitral valve stenosis. There is no mitral valve regurgitation noted. TRICUSPID VALVE The tricuspid valve is normal in structure. There is no tricuspid valve regurgitation noted. PULMONIC VALVE The pulmonic valve is not well visualized. There is no pulmonic valvular regurgitation. GREAT VESSELS The aortic root is normal in size. The IVC is normal in size and collapses >50% with inspiration. PERICARDIAL EFFUSION The pericardium appears normal. <Conclusion> The quality of images was extremely poor due to severe chr lung disease. The left ventricle is normal size. There is normal left ventricular wall thickness. There is normal LV segmental wall motion. Left ventricle systolic function is normal. The Ejection Fraction is 60-65%. The left ventricular diastolic function is normal.
[2017-12-05] MEDS: MethylPREDNISolone 40 mg Vial IVP SCH (09:23)
[2017-12-05] MEDS: Metoprolol Succinate 25 mg XL Tab PO SCH (09:24)
[2017-12-05] MEDS: Insulin Detemir 100 Units/ml Inj SC SCH (09:25)
[2017-12-05] MEDS: Insulin Lispro (humaLOG) 100 Units/ml Inj SC SCH ×2 (09:25→12:15)
[2017-12-05] MEDS: Azithromycin 500 MG in Sodium Chloride 0.9% 250 ML IVPB SCH (09:26)
--- NOTE | 2017-12-05 10:38 | RAD ---
HISTORY: ff up ? PNA COMPARISON: Chest radiograph dated 12/02/2017. TECHNIQUE: Chest PA and lateral FINDINGS: LUNGS: Prominence of the pulmonary vasculature may be secondary to AP technique and/or pulmonary vascular congestion. Increased conspicuity of right middle lobe atelectasis versus infiltrate. PLEURA: No significant pleural effusion identified. No pneumothorax apparent. CARDIOVASCULAR: Normal. OSSEOUS STRUCTURES: No significant abnormalities. VISUALIZED UPPER ABDOMEN: Normal. OTHER FINDINGS: None. IMPRESSION: Prominence of the pulmonary vasculature may be secondary to AP technique and/or pulmonary vascular congestion. Increased conspicuity of right middle lobe atelectasis versus infiltrate.
--- NOTE | 2017-12-05 11:42 | CP.PCM.DIS ---
Provider - Provider Date of Admission: 12/02/17 16:03 Attending physician: Carol Waddell MD Primary care physician: DR. Mazariegos Consults: pulmonary consult Time Spent in preparation of Discharge (in minutes): 15 Hospital Course - Lab Results Lab Results: Micro Results 12/02/17 14:20 Blood Blood Culture - Preliminary NO GROWTH AFTER 48 HOURS 12/02/17 14:20 Blood Blood Culture - Preliminary NO GROWTH AFTER 48 HOURS 12/03/17 16:40 Sputum Gram Stain - Final Most Recent Lab Values WBC 9.6 K/uL (4.8-10.8) 12/03/17 05:10 RBC 5.14 Mil/uL (4.40-5.90) 12/03/17 05:10 Hgb 14.5 g/dL (12.0-18.0) 12/03/17 05:10 Hct 44.7 % (35.0-51.0) 12/03/17 05:10 MCV 87.0 fl (80.0-94.0) 12/03/17 05:10 MCH 28.3 pg (27.0-31.0) 12/03/17 05:10 MCHC 32.5 g/dL (33.0-37.0) L 12/03/17 05:10 RDW 14.7 % (11.5-14.5) H 12/03/17 05:10 Plt Count 201 K/uL (130-400) 12/03/17 05:10 MPV 8.8 fl (7.2-11.7) 12/02/17 13:45 Neut % (Auto) 77.4 % (50.0-75.0) H 12/02/17 13:45 Lymph % (Auto) 8.4 % (20.0-40.0) L 12/02/17 13:45 [place] % (Auto) 9.9 % (0.0-10.0) 12/02/17 13:45 Eos % (Auto) 3.8 % (0.0-4.0) 12/02/17 13:45 Baso % (Auto) 0.5 % (0.0-2.0) 12/02/17 13:45 Neut # (Auto) 8.3 K/uL (1.8-7.0) H 12/02/17 13:45 Lymph # (Auto) 0.9 K/uL (1.0-4.3) L 12/02/17 13:45 [place] # (Auto) 1.1 K/uL (0.0-0.8) H 12/02/17 13:45 Eos # (Auto) 0.4 K/uL (0.0-0.7) 12/02/17 13:45 Baso # (Auto) 0.1 K/uL (0.0-0.2) 12/02/17 13:45 Neutrophils % (Manual) 73 % (42-75) 12/02/17 13:45 Lymphocytes % (Manual) 5 % (20-50) L 12/02/17 13:45 Reactive Lymphs % 4 % (0-0) H 12/02/17 13:45 Monocytes % (Manual) 12 % (0-10) H 12/02/17 13:45 Eosinophils % (Manual) 6 % (0-7) 12/02/17 13:45 Platelet Estimate Normal (NORMAL) 12/02/17 13:45 RBC Morphology Normal (NORMAL) 12/02/17 13:45 PT 12.5 Seconds (9.8-13.1) 12/02/17 13:45 INR 1.1 (0.9-1.2) 12/02/17 13:45 APTT 31.8 Seconds (25.6-37.1) 12/02/17 13:45 D-Dimer, Quantitative 197 ng/mlDDU (0-230) 12/02/17 13:45 pO2 34 mm/Hg (30-55) 12/02/17 14:20 VBG pH 7.46 (7.32-7.43) H 12/02/17 14:20 VBG pCO2 43 mmHg (40-60) 12/02/17 14:20 VBG HCO3 28.9 mmol/L 12/02/17 14:20 VBG Total CO2 31.9 mmol/L (22-28) H 12/02/17 14:20 VBG O2 Sat (Calc) 74.7 % (40-65) H 12/02/17 14:20 VBG Base Excess 6.0 mmol/L (0.0-2.0) H 12/02/17 14:20 VBG Potassium 3.9 mmol/L (3.6-5.2) 12/02/17 14:20 Sodium 133.0 mmol/L (132-148) 12/02/17 14:20 Chloride 97.0 mmol/L (98-107) L 12/02/17 14:20 Glucose 239 mg/dL (75-110) H 12/02/17 14:20 Lactate 2.1 mmol/L (0.7-2.1) 12/02/17 14:20 FiO2 21.0 % 12/02/17 14:20 Sodium 138 mmol/l (132-148) 12/03/17 05:10 Potassium 4.3 MMOL/L (3.6-5.0) 12/03/17 05:10 Chloride 98 mmol/L (98-107) 12/03/17 05:10 Carbon Dioxide 27 mmol/L (22-30) 12/03/17 05:10 Anion Gap 17 (10-20) 12/03/17 05:10 BUN 13 mg/dl (9-20) 12/03/17 05:10 Creatinine 0.6 mg/dl (0.8-1.5) L 12/03/17 05:10 Est GFR ( Amer) > 60 12/03/17 05:10 Est GFR (Non-Af Amer) > 60 12/03/17 05:10 POC Glucose (mg/dL) 247 mg/dL (65-110) H 12/05/17 11:12 Random Glucose 330 mg/dL (75-110) H 12/03/17 05:10 Hemoglobin A1c 9.4 % (4.2-6.5) H 12/03/17 05:10 Calcium 9.5 mg/dL (8.4-10.2) 12/03/17 05:10 Total Bilirubin 0.7 mg/dl (0.2-1.3) 12/02/17 13:45 AST 22 U/L (17-59) 12/02/17 13:45 ALT 30 U/L (21-72) 12/02/17 13:45 Alkaline Phosphatase 67 U/L (38-126) 12/02/17 13:45 Troponin I 0.0180 ng/mL (0.00-0.120) 12/02/17 13:45 NT-Pro-B Natriuret Pep 153 pg/ml (0-900) 12/02/17 13:45 Total Protein 7.8 G/DL (6.3-8.2) 12/02/17 13:45 Albumin 4.3 g/dL (3.5-5.0) 12/02/17 13:45 Globulin 3.5 gm/dL (2.2-3.9) 12/02/17 13:45 Albumin/Globulin Ratio 1.2 (1.0-2.1) 12/02/17 13:45 Venous Blood Potassium 3.9 mmol/L (3.6-5.2) 12/02/17 14:20 Urine Color Yellow (YELLOW) 12/02/17 17:30 Urine Clarity Slighty-cloudy (Clear) 12/02/17 17:30 Urine pH 7.0 (5.0-8.0) 12/02/17 17:30 Ur Specific [place] 1.014 (1.003-1.030) 12/02/17 17:30 Urine Protein 30 mg/dL (NEGATIVE) 12/02/17 17:30 Urine Glucose (UA) 50 mg/dL (Normal) 12/02/17 17:30 Urine Ketones Trace mg/dL (NEGATIVE) 12/02/17 17:30 Urine Blood Negative (NEGATIVE) 12/02/17 17:30 Urine Nitrate Negative (NEGATIVE) 12/02/17 17:30 Urine Bilirubin Negative (NEGATIVE) 12/02/17 17:30 Urine Urobilinogen 0.2-1.0 mg/dL (0.2-1.0) 12/02/17 17:30 Ur Leukocyte Esterase Trace [place]/uL (Negative) 12/02/17 17:30 Urine RBC (Auto) 3 /hpf (0-3) 12/02/17 17:30 Urine Microscopic WBC 9 /hpf (0-5) H 12/02/17 17:30 Ur Squamous Epith Cells 3 /hpf (0-5) 12/02/17 17:30 Urine Bacteria Rare (<OCC) 12/02/17 17:30 Influenza Typ A,B (EIA) Pos for influenza a (NEGATIVE) H 12/02/17 14:11 Ur L.pneumophila Ag Negative (NEGATIVE) 12/02/17 17:30 Mycoplasma pneumon IgG 1.69 (<=0.90) H 01/31/18 18:04 Mycoplasma pneumon IgM 47 U/mL (<770) 12/02/17 18:04 - Hospital Course Hospital Course: 52 y/o gent , obese with Hx of Asthma , DM type II, came in bec of SOB. Symptoms started 2 wks ago when pt started have some respiratory symptoms described as nasal congestion, wheezing, sl cough. His symptoms worsened and he started to have fever.His test results were significant for : Influenza A + . initial CXR showed no infiltrate. He was admitted for Asthma exacerbation started on Solumedrol IV, duonebs amd tamiflu for influenza. He was placed on respiratory isolation. During hospital stay he showed slow improvement of symptoms, continued to have wheezing m SOB and coughing spells , o2 sat as low as 90 % Repeat CXR showed possible developing Right middle lobe infiltrate He was started on Rocephin and Zithromax IV and pulmonary was consulted Clinically patient improved , today apperas to be comfrtable with no dyspnea, no wheezing on exam , ambulating with no respiratory distress. Feeling well to go home. He is hemodynamically stable, afebrile Will dfischarge patient kentrell arvind PO levaquine for CAP for 5 more days, Tamiflu for 2 more days , Medrol pack tapering dose,Singulair and albuterol PRN During this admision he was found to have elevated Bp and was started on Diovan 80 mg PO daily and toprol low dose Counselled patient to follow up with PMD Dr. Mazariegos upon discharge Counselled on compliance with medication , diet and exercise 1.CAP repeat CXR showed right middle lobe infiltrate pulmonary consulted Given Rocephin and Zithromax IV Will d/c on Levaquine for 5 more days 2. Mild to moderate persistent asthma with acute exacerbation Acute given DUONEBs and solumedrol IV Will d/c on Medrol pack, start Simngulair and albuterol PRn follow up with PMD Pt may need to have Sleep Study as outpt Pulm consulted, Dr Curry 3.Influenza A started Tamiflu for 5 days 4. HTN (hypertension) Acute denies having Hypertension started Diovan and low dose Toprol 5. DM type 2 (diabetes mellitus, type 2) with hyperglycemia Acute Hgb A1c 9.4 uncontrolled due to steroids accucheck continue home regiment as per PMD , levemir BID and humalog lunch time 6.Obesity BMI 45 7. BPH on flomax Discharge Exam - Head Exam Head Exam: ATRAUMATIC, NORMAL INSPECTION, NORMOCEPHALIC Additional comments: obese - Eye Exam Eye Exam: EOMI, Normal appearance, PERRL Pupil Exam: NORMAL ACCOMODATION - ENT Exam ENT Exam: Mucous Membranes Moist, Normal Exam - Neck Exam Neck exam: Full Rom, Normal Inspection - Respiratory Exam Respiratory Exam: Clear to PA & Lateral, NORMAL BREATHING PATTERN. absent: Rhonchi, Wheezes, Respiratory Distress - Cardiovascular Exam Cardiovascular Exam: REGULAR RHYTHM, +S1, +S2. absent: JVD - GI/Abdominal Exam GI & Abdominal Exam: Normal Bowel Sounds, Soft. absent: Guarding, Rebound, Tenderness - Rectal Exam Rectal Exam: Deferred - Extremities Exam Extremities exam: normal capillary refill, normal inspection, pedal pulses present - Back Exam Back exam: NORMAL INSPECTION - Neurological Exam Neurological exam: Alert, CN II-XII Intact, Oriented x3 - Psychiatric Exam Psychiatric exam: Normal Affect - Skin Skin Exam: Dry, Intact, Normal Color, Warm Discharge Plan - Discharge Medications Prescriptions: guaiFENesin/Codeine [Robitussin w/Codeine] 10 ml PO Q4 PRN #1 udc PRN Reason: Cough levoFLOXacin [Levaquin] 750 mg PO DAILY #5 tab Methylprednisolone [Medrol Dose Pack (21 tabs)] 4 mg PO DAILY #21 mg Metoprolol Succinate [Toprol XL] 25 mg PO DAILY #30 tab Montelukast [Singulair] 10 mg PO DAILY #30 tab Oseltamivir [Tamiflu Cap] 75 mg PO BID #4 cap Tamsulosin [Flomax] 0.4 mg PO DAILY #30 cap Valsartan [Diovan] 80 mg PO DAILY #30 tab - Follow Up Plan Condition: STABLE Disposition: HOME/ ROUTINE Patient education suggested?: Yes Instructions: Influenza (DC), Community Acquired Pneumonia (DC) Additional Instructions: follow up appt with 12/10/17 at 10:00am Referrals: Balbir Mazariegos MD [Staff Provider] -
[2017-12-05 12:18] VITALS: BP 136/75; PULSE 93; TEMP 97.8; O2SAT 94
--- NOTE | 2017-12-09 07:58 | PQF RESP ---
Dr. Waddell ED Physician Documentation Report documented respiratory failure. Do you agree or disagree with diagnosis of respiratory failure? This form is a permanent part of the medical record Clarification of your documentation is requested to better reflect the severity of illness and intensity of treatment of your patient. Indicators present [] Use of Home Oxygen [] Respiratory rate > 28 or <8/min (Labored respirations) [] PCO2 > 50 mm Hg or (Hypercapnia) (somnolence) [] PaO2 < 60 mm Hg or Hypoxemia (confusion) [] ABG blood gas pH < 7.35 [] SpO2 < 90% sat on Room Air [] Cyanosis [] Unable to Speak in Full Sentences [x] Use of Accessory Muscles / Tripoding [x] Wheezing [] Other: [] Location in the medical record that reflects the above clinical findings: [] Treatment Provided: [] PHYSICIAN'S RESPONSE Based on your medical judgment of the clinical indicators outlined above, are you treating this patient for a known or suspected: [x] Acute Respiratory Failure (hypoxia or hypercapnia) [] Chronic Respiratory Failure (hypoxia or hypercapnia) [] Acute on Chronic Respiratory Failure (hypoxia or hypercapnia) [] Hypoxemia please specify ACUTE, CHRONIC or ACUTE on CHRONIC [] Other []_ [] If unable to determine, please check the box, sign and date. Present On Admission (POA) Indicator: [x] Present at the time of admission [] Not present at the time of admission [] Clinically Undetermined In responding to this query, please exercise your independent professional judgment. The fact that a question is asked does not imply that any particular answer is desired or expected. Thank you for your clarification on this documentation. If you have any questions please call:[ ] * Thank you, [ ]Sarah Salinas toy assembler Chronic Respiratory Failure Description: Respiratory failure is a syndrome in which the respiratory system fails in one or both of its gas exchange functions: oxygenation and carbon dioxide elimination. In theory, respiratory failure is defined as a Pa02 value of <60 mm/Hg or a PaC02 of >50 mm/Hg. However, these values may be affected by renal compensation. Respiratory failure may be acute or chronic. While acute respiratory failure is characterized by life-threatening derangement in arterial blood gases and acid-base balance, the manifestations of chronic respiratory failure are less dramatic and may not be as readily apparent. Classifications: Respiratory failure may be classified as hypoxemic (usually characterized by Pa02 of <60 mm/Hg) or hypercapnic (usually characterized by PaC02 >50 mm/Hg) and either may be acute or chronic. Chronic hypercapnic respiratory failure develops over time and allows for renal compensation and an increase in bicarbonate concentration; therefore the pH is usually only slightly decreased. The distinction between acute and chronic hypoxemic respiratory failure cannot readily be made on the basis of ABGs; the clinical markers of chronic hypoxemia, such as polythycemia or cor pulmonale suggest a long standing disorder (chronic hypoxemic respiratory failure). Clinical Indicators: dyspnea at rest or "chronic" dyspnea, concomitant conditions such as polycythemia or cor pulmonale, requirement for continuous oxygen support, forced expiratory volume in one second (FEV1) of 49 or less, pursed lip breathing, "barrel" chest, hyperinflation by CXR, muscle wasting, malnutrition/obesity, poor exercise capacity, peripheral edema, description as a "blue bloater" (usually associated with chronic, obstructive bronchitis) or "pink puffer" (usually associated with emphysema) Risks: Chronic Hypoxemic Respiratory Failure - COPD, pulmonary fibrosis, asthma , pulmonary arterial hypertension, granulomatous lung diseases, congenital heart disease, bronchiectasis, kyphoscoliosis, obesity; Chronic Hypercapnic Respiratory Failure - COPD, severe asthma, myasthenia gravis, polyneuropathy, polio, head and cervical spine injuries, obesity hypoventilation syndrome. Treatment: supplemental oxygen, bronchodilators, corticosteroids, adequate nutrition, lung transplant References: Am. J. Respir. Crit. Care Med. "Global Strategy for the Diagnosis, Management and Prevention of COPD: GOLD Exectuive Summary," Elkin Rosales Anzueto - 2007; Proceedings of the [place] [employer] "Mechanisms and Measurements of Dyspnea in COPD," Lana - 2006; WebMD; Respiratory Failure, Eric Chaparro MD - 05/2006; Star's Principles of Internal Medicine, 17th edition. Acute Respiratory Failure Acute Respiratory Failure indicators include: ~Respirations >28 ~Air hunger ~Use of accessory muscles of respiration ~Inability to speak in full sentences Cyanosis ~Pulse ox <90% RA or <95% on O2 pH <7.35 or >7.45 ~pO2 < 60 mm Hg (or 10mm below COPD patient's baseline) ~pCO2 >50mm Hg (or 10mm above COPD patient's baseline) "Respiratory failure may be assigned as a principal diagnosis when it is the condition established after study to be chiefly responsible for occasioning admission to the hospital. The fact that the respiratory failure was managed without intubation and mechanical ventilation does not preclude its use." [facility], 3rd Qtr., 1988, p. 7 MTDD
== END 2017-12-05 14:12 | disposition home or self-care (01) | DRG 193 ==
LOC: H.ER 12:31 → H.ERHOLD 16:03 → H.TEL 22:07
PROVIDERS: ADMIT Internal Medicine; ATTEND Internal Medicine
DX: J10.00 Influenza due to other identified influenza virus with unspecified type of pneumonia (principal); J96.90 Respiratory failure, unspecified, unspecified whether with hypoxia or hypercapnia; E11.65 Type 2 diabetes mellitus with hyperglycemia; Z68.42 Body mass index [BMI] 45.0-49.9, adult; J45.31 Mild persistent asthma with (acute) exacerbation; E66.9 Obesity, unspecified; T38.0X5A Adverse effect of glucocorticoids and synthetic analogues, initial encounter; N40.0 Benign prostatic hyperplasia without lower urinary tract symptoms; I10 Essential (primary) hypertension

== ENCOUNTER 2017-12-26 10:42 | Emergency (ER) | payer BC ==
[2017-12-26 10:48] VITALS: BMI 43.5
--- NOTE | 2017-12-26 11:25 | ED PDOC ---
HPI: General Adult Time Seen by Provider: 12/26/17 10:54 Chief Complaint (Nursing): Abnormal Skin Integrity Chief Complaint (Provider): Swelling History Per: Patient History/Exam Limitations: no limitations Additional Complaint(s): Pt started on Montekulast upon discharge from [facility] 3 weeks ago, started having redness to face and swelling to bilateral legs and bilateral hands 1 week ago, no itching, no throat swelling, no new SOB. Past Medical History Reviewed: Nursing Documentation, Vital Signs Vital Signs: Last Vital Signs Temp 98.0 F 12/26/17 16:09 Pulse 76 12/26/17 16:09 Resp 18 12/26/17 16:09 BP 142/76 12/26/17 16:09 Pulse Ox 99 12/26/17 16:09 - Medical History PMH: Asthma, Diabetes, HTN Denies: Chronic Kidney Disease - Family History Family History: States: Unknown Family Hx - Social History Current smoker - smoking cessation education provided: No - Home Medications Home Medications: Ambulatory Orders Medication Instructions Recorded Albuterol Sulfate [Proair Hfa] 2 puff IH Q8H PRN 12/02/17 Insulin Detemir [Levemir] 50 unit SC BRKDIN 12/02/17 Insulin Lispro [humALOG] 50 unit SC .LUNCH 12/02/17 Promethazine [Phenergan Syrup] 5 ml PO Q6H PRN 12/02/17 Insulin Detemir [Levemir] 60 units SC HS vial 12/05/17 Methylprednisolone [Medrol Dose 4 mg PO DAILY #21 mg 12/05/17 Pack (21 tabs)] Metoprolol Succinate [Toprol XL] 25 mg PO DAILY #30 tab 12/05/17 Montelukast [Singulair] 10 mg PO DAILY #30 tab 12/05/17 Oseltamivir [Tamiflu Cap] 75 mg PO BID #4 cap 12/05/17 Tamsulosin [Flomax] 0.4 mg PO DAILY #30 cap 12/05/17 Valsartan [Diovan] 80 mg PO DAILY #30 tab 12/05/17 guaiFENesin/Codeine [Robitussin 10 ml PO Q4 PRN #1 udc 12/05/17 w/Codeine] levoFLOXacin [Levaquin] 750 mg PO DAILY #5 tab 02/03/18 Nitrofurantoin Macrocrystals 100 mg PO BID #14 cap 12/26/17 [Macrobid] - Allergies Allergies/Adverse Reactions: Allergies Allergy/AdvReac Type Severity Reaction Status Date / Time No Known Allergies Allergy Verified 05/13/17 15:04 Review of Systems Constitutional: Negative for: Fever, Chills Cardiovascular: Negative for: Chest Pain, Palpitations Respiratory: Negative for: Cough, Shortness of Breath Gastrointestinal: Negative for: Abdominal Pain Skin: Positive for: Rash. Negative for: Lesions Neurological: Negative for: Headache, Dizziness Physical Exam - Reviewed Nursing Documentation Reviewed: Yes Vital Signs Reviewed: Yes - Physical Exam Appears: Positive for: Well, No Acute Distress (Speaking full sentences) Skin: Positive for: Normal Color, Warm, Dry, Rash (Eythema L face, no induration ) Eye Exam: Positive for: Normal appearance, EOMI, PERRL Cardiovascular/Chest: Positive for: Regular Rate, Rhythm Respiratory: Positive for: Normal Breath Sounds. Negative for: Rales, Rhonchi, Wheezing Extremity: Positive for: Tenderness, Pedal Edema, Swelling. Negative for: Calf Tenderness, Deformity - Laboratory Results Result Diagrams: 12/26/17 11:46 12/26/17 11:53 - ECG O2 Sat by Pulse Oximetry: 95 Medical Decision Making Medical Decision Makin yo male with bilateral extremity edema. - labs - Doppler ultrasound Accession No. : [id number] Patient Name / ID : MICHAEL PELAYO / [id number] Exam Date : 12/26/2017 14:57:56 ( Approved ) Study Comment : Sex / Age : M / 52Y Creator : Raciel Sanford MD Dictator : Raciel Sanford MD Air Brake Rigger : Child Life Therapist : Raciel Sanford MD Approver2 : Report Date : 12/26/2017 16:24:35 My Comment : PROCEDURE: Bilateral lower extremity venous duplex Doppler. HISTORY: BLE swelling COMPARISON: None available. TECHNIQUE: Bilateral common femoral, superficial femoral, popliteal and posterior tibial veins were evaluated. Flow was assessed with color Doppler, compressibility, assessment of phasic flow and augmentation response. FINDINGS: Normal phasic venous blood flow has been identified in the veins defined below as well as compressibility, augmentation and grayscale anatomy. COMMON FEMORAL VEIN: Right CFV: Unremarkable. Left CFV: Unremarkable. SUPERFICIAL FEMORAL VEIN: Right SFV: Unremarkable. Left SFV: Unremarkable. POPLITEAL VEIN: Right Popliteal: Unremarkable. Left Popliteal: Unremarkable. POSTERIOR TIBIAL VEIN: Right PTV: Unremarkable. Left PTV: Unremarkable. OTHER FINDINGS: None. IMPRESSION: No ultrasound evidence of deep venous thrombosis bilateral lower extremities. Disposition - Clinical Impression Clinical Impression: Leg edema, UTI (urinary tract infection) - Disposition Referrals: Balbir Mazariegos MD [Staff Provider] - Disposition: Routine/Home Disposition Time: 15:33 Condition: STABLE Prescriptions: Nitrofurantoin Macrocrystals [Macrobid] 100 mg PO BID #14 cap Instructions: Urinary Tract Infections in Adults, Dependent Edema (DC) Forms: [employer] (Greek)
[2017-12-26 11:53] LABS: BASO # 0.1 K/uL (0.0-0.2); BASO % 1.2 % (0.0-2.0); EOS # 0.8 K/uL (0.0-0.7); EOS % 9.8 % (0.0-4.0); HEMOGLOBIN 13.6 g/dL (12.0-18.0); LYMPH # 1.8 K/uL (1.0-4.3); LYMPH % 21.2 % (20.0-40.0); MEAN CELL VOLUME 85.8 fl (80.0-94.0); MEAN CORPUSCULAR HGB CONC 33.8 g/dL (33.0-37.0); MEAN PLATELET VOLUME 9.1 fl (7.2-11.7); MONO % 12.3 % (0.0-10.0); NEUT # 4.7 K/uL (1.8-7.0); NEUT % 55.5 % (50.0-75.0); NRBC % 0.6 % (0.0-0.0); RBC 4.68 Mil/uL (4.40-5.90); RED CELL DISTRIBUTION WIDTH 14.4 % (11.5-14.5); WHITE BLOOD COUNT 8.4 K/uL (4.8-10.8)
[2017-12-26 12:37] LABS: ALBUMIN 3.7 g/dL (3.5-5.0); ALT/SGPT 27 U/L (21-72); AST/SGOT 41 U/L (17-59); BLOOD UREA NITROGEN 7 mg/dl (9-20); CALCIUM 8.5 mg/dL (8.4-10.2); GFR AFRICAN-AMERICAN > 60; GFR NON-AFRICAN AMERICAN > 60
[2017-12-26 13:38] LABS: SPERM URINE RARE /hpf; SQUAMOUS EPITHIAL 2 /hpf (0-5); URINE AMORPHOUS SEDIMENT RARE /ul (<OCC); URINE BILIRUBIN NEGATIVE (NEGATIVE); URINE BLOOD NEGATIVE (NEGATIVE); URINE CLARITY CLOUDY (Clear); URINE COLOR YELLOW (YELLOW); URINE GLUCOSE (UA) 50 mg/dL (Normal); URINE LEUKOCYTE ESTERASE MOD Leu/uL (Negative); URINE NITRATE NEGATIVE (NEGATIVE); URINE PROTEIN 100 mg/dL (NEGATIVE); URINE UROBILINOGEN 0.2-1.0 mg/dL (0.2-1.0)
[2017-12-26] MEDS ORDERED: cefTRIAXone (Rocephin) 1 gm Inj ONE (13:49)
[2017-12-26 16:10] VITALS: BP 142/76; PULSE 76; RESP 18; TEMP 98
--- NOTE | 2017-12-26 16:26 | US ---
PROCEDURE: Bilateral lower extremity venous duplex Doppler. HISTORY: BLE swelling COMPARISON: None available. TECHNIQUE: Bilateral common femoral, superficial femoral, popliteal and posterior tibial veins were evaluated. Flow was assessed with color Doppler, compressibility, assessment of phasic flow and augmentation response. FINDINGS: Normal phasic venous blood flow has been identified in the veins defined below as well as compressibility, augmentation and grayscale anatomy. COMMON FEMORAL VEIN: Right CFV: Unremarkable. Left CFV: Unremarkable. SUPERFICIAL FEMORAL VEIN: Right SFV: Unremarkable. Left SFV: Unremarkable. POPLITEAL VEIN: Right Popliteal: Unremarkable. Left Popliteal: Unremarkable. POSTERIOR TIBIAL VEIN: Right PTV: Unremarkable. Left PTV: Unremarkable. OTHER FINDINGS: None. IMPRESSION: No ultrasound evidence of deep venous thrombosis bilateral lower extremities.
[2017-12-27 09:35] VITALS: O2SAT 95
== END 2017-12-26 16:10 | disposition home or self-care (01) ==
LOC: H.ER 10:42
DX: R60.0 Localized edema (principal); N39.0 Urinary tract infection, site not specified; E11.9 Type 2 diabetes mellitus without complications; Z79.4 Long term (current) use of insulin; I10 Essential (primary) hypertension; J45.909 Unspecified asthma, uncomplicated
CPT/HCPCS: 80053; 81003; 85025; 87086; 93970; 96374; 99283; J0696

== ENCOUNTER 2018-05-21 17:15 | Emergency (ER) | payer BC ==
[2018-05-21 17:15] VITALS: BMI 43.5
[2018-05-21 18:23] LABS: SQUAMOUS EPITHIAL < 1 /hpf (0-5); URINE BACTERIA RARE (<OCC); URINE BILIRUBIN NEGATIVE (NEGATIVE); URINE BLOOD MODERATE (NEGATIVE); URINE CLARITY CLOUDY (Clear); URINE COLOR YELLOW (YELLOW); URINE GLUCOSE (UA) >=500 mg/dL (Normal); URINE LEUKOCYTE ESTERASE TRACE Leu/uL (Negative); URINE PROTEIN 30 mg/dL (NEGATIVE); URINE UROBILINOGEN 0.2-1.0 mg/dL (0.2-1.0)
--- NOTE | 2018-05-21 18:27 | ED PDOC ---
HPI: Male Pain Time Seen by Provider: 05/21/18 17:30 Chief Complaint (Nursing): Male Genitourinary Chief Complaint (Provider): Urinary hesitancy History Per: Patient History/Exam Limitations: no limitations Onset/Duration Of Symptoms: Hrs Current Symptoms Are (Timing): Still Present Associated Symptoms: Urinary Symptoms. denies: Fever, Chills, Nausea, Vomiting , Diarrhea, Back Pain Additional History Per: Patient Additional Complaint(s): 53yo male, comes to ER for evaluation of urinary hesitancy. Patient states around 2PM today, he was in the midst of a conversation when he suddenly felt the urge to go to the bathroom and when he went to urinate, he felt as if something was "blocking". Patient states he was able to urinate but had to " push it out"; he thinks there might be a stone near the base of his penis. He states he initially had hematuria but that has now resolved. He currently denies any pain, flank pain, fever, chills, nausea, vomiting, and offers no other medical complaints. PMD: Dr. Guerra Past Medical History Reviewed: Historical Data, Nursing Documentation, Vital Signs Vital Signs: Last Vital Signs Temp 98.8 F 05/21/18 17:19 Pulse 103 H 05/21/18 17:19 Resp 16 05/21/18 17:19 BP 178/86 H 05/21/18 17:19 Pulse Ox 96 05/21/18 17:19 - Medical History PMH: Asthma, Diabetes, HTN, Kidney Stones Denies: Chronic Kidney Disease - Surgical History Surgical History: No Surg Hx - Family History Family History: States: Diabetes - Home Medications Home Medications: Ambulatory Orders Medication Instructions Recorded Albuterol Sulfate [Proair Hfa] 2 puff IH Q8H PRN 12/02/17 Insulin Detemir [Levemir] 50 unit SC BRKDIN 12/02/17 Insulin Lispro [humALOG] 50 unit SC .LUNCH 12/02/17 Promethazine [Phenergan Syrup] 5 ml PO Q6H PRN 12/02/17 Insulin Detemir [Levemir] 60 units SC HS vial 12/05/17 Methylprednisolone [Medrol Dose 4 mg PO DAILY #21 mg 12/05/17 Pack (21 tabs)] Metoprolol Succinate XL [Toprol XL] 25 mg PO DAILY #30 tab 12/05/17 Montelukast [Singulair] 10 mg PO DAILY #30 tab 12/05/17 Oseltamivir [Tamiflu Cap] 75 mg PO BID #4 cap 12/05/17 Tamsulosin [Flomax] 0.4 mg PO DAILY #30 cap 12/05/17 Valsartan [Diovan] 80 mg PO DAILY #30 tab 12/05/17 guaiFENesin/Codeine [Robitussin 10 ml PO Q4 PRN #1 udc 12/05/17 w/Codeine] levoFLOXacin [Levaquin] 750 mg PO DAILY #5 tab 12/05/17 Nitrofurantoin Macrocrystals 100 mg PO BID #14 cap 12/26/17 [Macrobid] Acetaminophen with Codeine 2 tab PO Q4H PRN #22 tab 05/21/18 [Tylenol with Codeine No. 3 300 mg-30 mg] Cefuroxime Axetil [Cefuroxime] 500 mg PO BID #14 tablet 05/21/18 Phenazopyridine [Phenazopyridine 200 mg PO Q12 PRN #20 tab 05/21/18 HCl] Tamsulosin [Flomax] 0.4 mg PO DAILY #14 cap 05/21/18 - Allergies Allergies/Adverse Reactions: Allergies Allergy/AdvReac Type Severity Reaction Status Date / Time ciprofloxacin [From Cipro] Allergy HEADACHE Verified 05/21/18 17:18 montelukast [From Singulair] Allergy SWELLING Verified 05/21/18 17:18 Review of Systems ROS Statement: Except As Marked, All Systems Reviewed And Found Negative (as per HPI) Constitutional: Negative for: Fever, Chills Gastrointestinal: Negative for: Nausea, Vomiting Genitourinary Male: Positive for: Other (urinaryy hesitancy). Negative for: Hematuria, Penile Pain Physical Exam - Reviewed Nursing Documentation Reviewed: Yes Vital Signs Reviewed: Yes - Physical Exam Appears: Positive for: Non-toxic, No Acute Distress (+ obese) Head Exam: Positive for: ATRAUMATIC, NORMOCEPHALIC Skin: Positive for: Warm, Dry Cardiovascular/Chest: Positive for: Regular Rate, Rhythm. Negative for: Murmur Respiratory: Negative for: Accessory Muscle Use, Respiratory Distress Gastrointestinal/Abdominal: Positive for: Soft, Other (protuberous obese abdomen ). Negative for: Tenderness, Mass, Guarding, Rebound Back: Positive for: Normal Inspection. Negative for: L CVA Tenderness, R CVA Tenderness Lymphatic: Negative for: Adenopathy Neurologic/Psych: Positive for: Alert. Negative for: Motor/Sensory Deficits - Laboratory Results Urine dip results: Positive for: Blood, Glucose - ECG O2 Sat by Pulse Oximetry: 96 (RA) Pulse Ox Interpretation: Normal Medical Decision Making Medical Decision Making: Impression: Obstructing uretheral stone Plan: -- CT Abdomen/Pelvis w/o contrast -- Flomax 0.4 mg PO -- UDip Time: 1914 CT Abdomen/ Pelvis FINDINGS: LOWER THORAX: Linear opacities at the lung bases are noted likely scar tissue or atelectasis. No evidence of pleural effusion. LIVER: Unremarkable. No gross lesion or ductal dilatation. GALLBLADDER AND BILE DUCTS: Unremarkable. PANCREAS: Unremarkable. No gross lesion or ductal dilatation. SPLEEN: Unremarkable. ADRENALS: Unremarkable. No mass. KIDNEYS AND URETERS: There are nonobstructing renal calculi bilaterally larger on the right. The largest calculus seen at the lower pole of the right kidney measures 12 millimeter. No evidence of significant hydronephrosis or hydroureter. The largest stone in the left kidney seen at the lower pole measures 4 millimeter. VASCULATURE: Unremarkable. No aortic aneurysm. BOWEL: Unremarkable. No obstruction. No gross mural thickening. Scattered colonic diverticulosis are seen without evidence of diverticulitis. APPENDIX: No evidence of appendicitis. PERITONEUM: Unremarkable. No free fluid. No free air. LYMPH NODES: Unremarkable. No enlarged lymph nodes. BLADDER: Unremarkable. REPRODUCTIVE: Unremarkable. BONES: No acute fracture. OTHER FINDINGS: None. IMPRESSION: Bilateral nonobstructing renal calculi larger on the right. No evidence of hydronephrosis or hydroureter. Otherwise no significant interval change since the previous exam noted. Time: 2008 CT findings discussed with reading radiologist Dr. Fang, who confirms provider 's read that patient does have a large stone in his urethra Time: [address] Villa, urologist construction project administrator who recommends flomax, pain medication, antibiotics and follow up in his office next week. Findings and plan of care discussed with patient; all questions answered. Patient expresses understanding and is agreeable with plan. Stable for discharge home. Scribe Attestation: Documented by Ginger Mascorro, acting as a scribe for Corrina Dawn MD. Provider Scribe Attestation: All medical record entries made by the Scribe were at my direction and personally dictated by me. I have reviewed the chart and agree that the record accurately reflects my personal performance of the history, physical exam, medical decision making, and the department course for this patient. I have also personally directed, reviewed, and agree with the discharge instructions and disposition. Disposition - Clinical Impression Clinical Impression: Urethral stone Counseled Patient/Family Regarding: Studies Performed, Diagnosis, Need For Followup, Rx Given - Disposition Referrals: Carrillo Villa MD [Staff Provider] - Shantanu Bahena MD [Medical Doctor] - Disposition: Routine/Home Disposition Time: 20:00 Condition: GOOD Additional Instructions: FOLLOW UP WITH A UROLOGIST EARLY NEXT WEEK STRAIN YOUR URINE TO TRY TO CATCH STONE Prescriptions: Acetaminophen with Codeine [Tylenol with Codeine No. 3 300 mg-30 mg] 2 tab PO Q4H PRN #22 tab PRN Reason: Pain Cefuroxime Axetil [Cefuroxime] 500 mg PO BID #14 tablet Phenazopyridine [Phenazopyridine HCl] 200 mg PO Q12 PRN #20 tab PRN Reason: Dysuria Tamsulosin [Flomax] 0.4 mg PO DAILY #14 cap Instructions: Urinary Obstruction (DC) Forms: [facility] (Yi)
--- NOTE | 2018-05-21 19:15 | CT ---
Date of service: 05/21/2018 PROCEDURE: CT Abdomen and Pelvis without intravenous contrast HISTORY: urinary hesitancy and hematuria COMPARISON: Comparison is made with 05/13/2017 TECHNIQUE: Axial and reformatted coronal and sagittal CT images of the abdomen and pelvis were obtained without IV or oral contrast administration.. Contrast dose: 0 Radiation dose: Total exam DLP = 857.19 mGy-cm. This CT exam was performed using one or more of the following dose reduction techniques: Automated exposure control, adjustment of the mA and/or kV according to patient size, and/or use of iterative reconstruction technique. FINDINGS: LOWER THORAX: Linear opacities at the lung bases are noted likely scar tissue or atelectasis. No evidence of pleural effusion. LIVER: Unremarkable. No gross lesion or ductal dilatation. GALLBLADDER AND BILE DUCTS: Unremarkable. PANCREAS: Unremarkable. No gross lesion or ductal dilatation. SPLEEN: Unremarkable. ADRENALS: Unremarkable. No mass. KIDNEYS AND URETERS: There are nonobstructing renal calculi bilaterally larger on the right. The largest calculus seen at the lower pole of the right kidney measures 12 millimeter. No evidence of significant hydronephrosis or hydroureter. The largest stone in the left kidney seen at the lower pole measures 4 millimeter. VASCULATURE: Unremarkable. No aortic aneurysm. BOWEL: Unremarkable. No obstruction. No gross mural thickening. Scattered colonic diverticulosis are seen without evidence of diverticulitis. APPENDIX: No evidence of appendicitis. PERITONEUM: Unremarkable. No free fluid. No free air. LYMPH NODES: Unremarkable. No enlarged lymph nodes. BLADDER: Unremarkable. REPRODUCTIVE: Unremarkable. BONES: No acute fracture. OTHER FINDINGS: None. IMPRESSION: Bilateral nonobstructing renal calculi larger on the right. No evidence of hydronephrosis or hydroureter. Otherwise no significant interval change since the previous exam noted.
[2018-05-21 20:56] VITALS: BP 156/80; PULSE 92; RESP 18; TEMP 98.6
[2018-05-22 17:26] VITALS: O2SAT 96
== END 2018-05-21 20:53 | disposition home or self-care (01) ==
LOC: H.ER 17:15
DX: N20.0 Calculus of kidney (principal); E11.9 Type 2 diabetes mellitus without complications; I10 Essential (primary) hypertension; Z79.4 Long term (current) use of insulin